=== PATIENT | male | born 1955 | race Caucasian/White ===

== ENCOUNTER 2018-06-12 08:20 | Outpatient (CLI) | payer OTHER ==
[2018-06-12 14:26] LABS: BASOPHILS % (AUTO) 0.3 %; EOSINOPHILS # (AUTO) 0.1 10^3/uL (0.0-0.7); EOSINOPHILS % (AUTO) 1.2 %; LYMPHOCYTES # (AUTO) 1.3 10^3/uL (1.5-3.5); LYMPHOCYTES % (AUTO) 19.3 %; MEAN CORPUSCULAR HEMOGLOBIN 31.2 pg (27.0-31.0); MEAN CORPUSCULAR HGB CONC 34.6 g/dL (32.0-36.0); MEAN CORPUSCULAR VOLUME 90.4 fL (80.0-94.0); MEAN PLATELET VOLUME 7.8 fL (7.4-11.4); MONOCYTES # (AUTO) 0.6 10^3/uL (0.0-1.0); MONOCYTES % (AUTO) 9.1 %; NEUTROPHILS # (AUTO) 4.9 10^3/uL (1.5-6.6); NEUTROPHILS % (AUTO) 70.1 %; PLT - PLATELET COUNT 233 10^3/uL (130-450); RED BLOOD COUNT 5.11 10^6/uL (4.70-6.10); RED CELL DISTRIBUTION WIDTH 13.1 % (12.0-15.0); WHITE BLOOD COUNT 6.9 x10^3/uL (4.8-10.8)
[2018-06-12 15:02] LABS: ALBUMIN 4.2 g/dL (3.2-5.5); ALBUMIN/GLOBULIN RATIO 1.2 (1.0-2.2); ALKALINE PHOSPHATASE 75 IU/L (42-121); ALT ALANINE AMINOTRANSFERASE 24 IU/L (10-60); AST ASPARTATE AMINOTRANSFERASE 26 IU/L (10-42); BUN - BLOOD UREA NITROGEN 16 mg/dL (6-20); CALCIUM 9.4 mg/dL (8.5-10.3); CARBON DIOXIDE - CO2 27 mmol/L (21-32); CHLORIDE 101 mmol/L (101-111); CHOL/HDL RATIO 3.6 (<5.0); CHOLESTEROL 204 mg/dL; CREATININE 0.9 mg/dL (0.6-1.2); GFR - MDRD 86 (>89); GLUCOSE 121 mg/dL (70-100); HDL CHOLESTEROL 57 mg/dL; LDL CHOLESTEROL,CALCULATED 119 mg/dL; LDL/HDL RATIO 2.1 (<3.6); SODIUM 139 mmol/L (135-145); TOTAL PROTEIN 7.6 g/dL (6.7-8.2); VLDL CHOLESTEROL 28 mg/dL
== END 2018-06-12 08:21 | disposition home or self-care (01) ==
LOC: LAB.N 08:20
PROVIDERS: ATTEND Physician Assistant Medical
DX: Z00.00 Encounter for general adult medical examination without abnormal findings (principal); F41.1 Generalized anxiety disorder; E78.00 Pure hypercholesterolemia, unspecified
CPT/HCPCS: 36415; 80053; 80061; 83721; 84443; 85025

== ENCOUNTER 2021-05-04 16:10 | Outpatient (CLI) | payer OTHER ==
--- NOTE | 2021-05-05 08:51 | XRAY Report ---
PROCEDURE: Shoulder 3 View LT INDICATIONS: OSTEOARTHRITIS OF L SHOULDER TECHNIQUE: Views of the shoulder were acquired. COMPARISON: None. FINDINGS: Bones: No fractures or dislocations. No suspicious bony lesions. Visualized ribs appear intact. T here are degenerative changes of the glenohumeral joint and acromioclavicular joint which are mild. Soft tissues: No suspicious soft tissue calcifications. IMPRESSION: Mild degenerative changes of the glenohumeral joint and acromioclavicular joint. No acut e abnormality. Reviewed by: Tyson Herman on 05/05/2021 8:49 AM PDT Approved by: Tyson Herman on 05/05/2021 8:49 AM PDT Station ID: [id number]
== END 2021-05-04 23:59 | disposition home or self-care (01) ==
LOC: DI.N 16:10
PROVIDERS: ATTEND Physician Assistant Medical
DX: M19.012 Primary osteoarthritis, left shoulder (principal)

== ENCOUNTER 2021-07-14 08:00 | Outpatient (CLI) | payer OTHER ==
--- NOTE | 2021-07-14 17:48 | XRAY Report ---
PROCEDURE: Shoulder 1 View LT INDICATIONS: OSTEOARTHRITIS OF L SHOULDER TECHNIQUE: 1 views of the shoulder were acquired. COMPARISON: 3 views of the left shoulder dated 05/04/2021 FINDINGS: Bones: A single view of the shoulder demonstrates no obvious fractures or dislocations. Degenerative changes, as noted before. No suspicious bony lesions. Visualized ribs appear intact. Soft tissues: No suspicious soft tissue calcifications. IMPRESSION: Degenerative change. No evidence acute bony abnormality of the left shoulder. If clinical suspicion and/or symptoms persist, further assessment with repeat plain films or advanced imaging (e.g., CT, MRI, or bone scan) may be helpful for further assessment. Reviewed by: Gerald Méndez MD on 07/14/2021 5:46 PM PST Approved by: Gerald Méndez MD on 07/14/2021 5:46 PM PST Station ID: [id number]
== END 2021-07-14 23:59 | disposition home or self-care (01) ==
LOC: DI.N 08:00
PROVIDERS: ATTEND Physician Assistant
DX: M19.012 Primary osteoarthritis, left shoulder (principal)

== ENCOUNTER 2022-10-15 08:02 | Outpatient (CLI) | payer MEDICARE, MEDICAID ==
[2022-10-15 11:59] LABS: BASOPHILS % (AUTO) 0.5 %; EOSINOPHILS # (AUTO) 0.1 10^3/uL (0.0-0.7); EOSINOPHILS % (AUTO) 1.8 %; HCT - HEMATOCRIT 46.3 % (42.0-52.0); HGB - HEMOGLOBIN 15.3 g/dL (14.0-18.0); LYMPHOCYTES # (AUTO) 1.3 10^3/uL (1.5-3.5); LYMPHOCYTES % (AUTO) 21.7 %; MEAN CORPUSCULAR HEMOGLOBIN 30.2 pg (27.0-31.0); MEAN CORPUSCULAR VOLUME 91.5 fL (80.0-94.0); MEAN PLATELET VOLUME 9.7 fL (7.4-11.4); MONOCYTES # (AUTO) 0.5 10^3/uL (0.0-1.0); NEUTROPHILS % (AUTO) 66.7 %; PLT - PLATELET COUNT 209 10^3/uL (130-450); RED BLOOD COUNT 5.06 10^6/uL (4.70-6.10); RED CELL DISTRIBUTION WIDTH 13.2 % (12.0-15.0)
[2022-10-15 12:18] LABS: ALBUMIN 4.1 g/dL (3.2-5.5); ALBUMIN/GLOBULIN RATIO 1.3 (1.0-2.2); ALKALINE PHOSPHATASE 68 IU/L (42-121); ALT ALANINE AMINOTRANSFERASE 26 IU/L (10-60); AST ASPARTATE AMINOTRANSFERASE 21 IU/L (10-42); BUN - BLOOD UREA NITROGEN 28 mg/dL (6-20); CALCIUM 9.4 mg/dL (8.5-10.3); CARBON DIOXIDE - CO2 29 mmol/L (21-32); CHLORIDE 104 mmol/L (101-111); CHOL/HDL RATIO 3.6 (<5.0); CHOLESTEROL 172 mg/dL; CREATININE 1.1 mg/dL (0.6-1.2); GFR - MDRD 67 (>89); GLUCOSE 125 mg/dL (70-100); HDL CHOLESTEROL 48 mg/dL; LDL CHOLESTEROL,CALCULATED 104 mg/dL; LDL/HDL RATIO 2.2 (<3.6); SODIUM 137 mmol/L (135-145); TOTAL PROTEIN 7.3 g/dL (6.7-8.2); TRIGLYCERIDES 99 mg/dL; VLDL CHOLESTEROL 20 mg/dL
[2022-10-15 12:26] LABS: THYROID STIMULATING HORMONE 2.15 uIU/mL (0.34-5.60)
== END 2022-10-15 08:03 | disposition home or self-care (01) ==
LOC: LAB.N 08:02
PROVIDERS: ATTEND Family Medicine
DX: Z00.00 Encounter for general adult medical examination without abnormal findings (principal); E78.00 Pure hypercholesterolemia, unspecified; F41.1 Generalized anxiety disorder; Z12.5 Encounter for screening for malignant neoplasm of prostate
CPT/HCPCS: 36415; 80053; 80061; 84443; 85025; G0103; 83721; 84153

== ENCOUNTER 2023-02-03 09:15 | Outpatient (CLI) | payer MEDICARE, MEDICAID ==
[2023-02-03 12:13] LABS: PSA TOTAL 5.109 ng/mL (0.000-2.000)
[2023-02-03 12:41] LABS: PSA FREE 0.54 ng/mL (0.16-2.81)
== END 2023-02-03 09:16 | disposition home or self-care (01) ==
LOC: LAB.N 09:15
PROVIDERS: ATTEND Family Medicine
DX: R97.20 Elevated prostate specific antigen [PSA] (principal); Z12.5 Encounter for screening for malignant neoplasm of prostate
CPT/HCPCS: 36415; 84153; 84154

== ENCOUNTER 2023-04-08 08:20 | Outpatient (CLI) | payer MEDICARE, MEDICAID ==
[2023-04-08 12:35] LABS: PSA TOTAL 5.219 ng/mL (0.000-2.000)
== END 2023-04-08 08:21 | disposition home or self-care (01) ==
LOC: LAB.N 08:20
PROVIDERS: ATTEND Family Medicine
DX: R97.20 Elevated prostate specific antigen [PSA] (principal); Z12.5 Encounter for screening for malignant neoplasm of prostate
CPT/HCPCS: 36415; 84153; 84154

== ENCOUNTER 2023-04-14 07:04 | Outpatient (CLI) | payer MEDICARE, OTHER ==
[2023-04-14 07:42] LABS: CREATININE 1.1 mg/dL (0.6-1.3)
--- NOTE | 2023-04-14 14:00 | MRI Report ---
PROCEDURE: PELVIS W/WO INDICATIONS: ELEVATED PSA CONTRAST: GADAVIST 7.3 ML TECHNIQUE: Coronal ultra fast SE, axial T1 FSE with fat saturation, 3-plane nonbreath-hold T2 FSE. After the ad ministration of contrast, dynamic axial, delayed axial and coronal ultra fast GE or 2-D spoiled GE wi th fat saturation through the pelvis. Optional diffusion weighted imaging and ADC may be performed. COMPARISON: None. FINDINGS: Image quality: Diffusion weighted and dynamic contrast enhanced images are diagnostic. Prostate: Gland size is 5.0 x 3.2 x 3.6 cm; ellipsoid gland volume is 30 mL. Prostate lesions: Lesion 1: Location: Left, mid gland, medial peripheral zone. This is best seen on axial series 5, image 10 and coronal series 6, image 16. Size: 1.2 x 0.6 cm. T2W signal: Circumscribed, homogenous moderate hypointense focus (PI-RADS 4 or 5). DWI signal: Markedly hyperintense signal (PI-RADS 4-5). ADC signal: Markedly hypointense signal (PI-RADS 4-5). Enhancement: Yes Extracapsular extension: No. No neurovascular involvement. No seminal vesicle involvement. PI-RADS score: 4 Genitourinary system: Trabecular bladder wall. Mild distention of the left distal ureter, without ob structing mass seen. Bowel and peritoneum: No pathologic free pelvic fluid. Inferior colon and small bowel loops are nor mal in caliber. Nodes and vessels: No pelvic or inguinal adenopathy by size criteria. Iliac vessels are normal in c aliber. Soft tissues: Small, fat-containing inguinal hernias. Bones: Bone marrow demonstrates normal overall signal. No suspicious bony lesions. IMPRESSION: PI-RADS 4 lesion in the peripheral mid mid gland on the left. No aggressive osseous abnormality. No s uspicious pelvic nodes. Small, fat-containing inguinal hernias. Reviewed by: Kurt Bazan on 04/14/2023 1:59 PM PDT Approved by: Kurt Bazan on 04/14/2023 1:59 PM PDT Station ID: [id number]
== END 2023-04-14 07:05 | disposition home or self-care (01) ==
LOC: LAB 07:04
PROVIDERS: ATTEND Urology
DX: R97.20 Elevated prostate specific antigen [PSA] (principal); K40.20 Bilateral inguinal hernia, without obstruction or gangrene, not specified as recurrent; N42.89 Other specified disorders of prostate
CPT/HCPCS: 36415; 72197; 82565; 84520; A9585

== ENCOUNTER 2023-10-07 07:33 | Day surgery (SDC) | payer MEDICARE, OTHER ==
--- NOTE | 2023-10-07 07:48 | ANESTHESIA ---
Pre-Anesthesia VS, & Labs - Diagnosis screening colonoscopy - Procedure colonoscopy - NPO Other (prep as directed) Home Medications and Allergies Home Medications: Ambulatory Orders Atorvastatin Calcium 40 mg PO HS 10/06/23 Multivit with Iron,Minerals [Multivitamins with Iron] 1 tab PO DAILY 10/06/23 Sertraline HCl 100 mg PO HS 10/06/23 Sildenafil Citrate [Viagra] 25 mg PO PRN PRN MDD 50 10/06/23 Tamsulosin [Flomax] 0.4 mg PO DAILY 10/06/23 buPROPion [Wellbutrin Sr] 150 mg PO DAILY 10/06/23 glucosamine HCL [Glucosamine HCl] 1,500 mg PO DAILY 10/06/23 Atorvastatin Calcium 40 mg PO HS 10/06/23 Multivit with Iron,Minerals [Multivitamins with Iron] 1 tab PO DAILY 10/06/23 Sertraline HCl 100 mg PO HS 10/06/23 Sildenafil Citrate [Viagra] 25 mg PO PRN PRN MDD 50 10/06/23 Tamsulosin [Flomax] 0.4 mg PO DAILY 10/06/23 buPROPion [Wellbutrin Sr] 150 mg PO DAILY 10/06/23 glucosamine HCL [Glucosamine HCl] 1,500 mg PO DAILY 10/06/23 Allergies/Adverse Reactions: Allergies Allergy/AdvReac Type Severity Reaction Status Date / Time Unable to Assess Allergy Verified 10/06/23 14:09 Anes History & Medical History - Anesthetic History Anesthesia Complications: reports: No previous complications - Medical History Smoking Status: Never smoker Psychosocial: reports: Alcohol (rare beer) History of Cancer?: No Exam General: Alert, Oriented x3 Dental: WNL Mouth Opening: Greater than 4 Fingerbreadths Neck Mobility: Normal Mallampati classification: II Thyromental Distance: greater than 6 cm Respiratory: Lungs clear Cardiovascular: Regular rate Plan Anesthesia Type: Total IV Consent for Procedure(s) Verified and Reviewed: Yes Code Status: Attempt Resuscitation ASA classification: 2-Mild systemic disease Is this case an emergency?: No
[2023-10-07] MEDS: LACTATED RINGERS 1,000 ML IV ONE ×2 (07:51→09:10)
--- NOTE | 2023-10-07 08:31 | HISTORY & PHYSICAL EXAMINATION ---
Chief Complaint - Chief Complaint Chief Complaint: here for colonoscopy History of Present Illness - History Obtained From Records Reviewed: yes History obtained from: pt Exam Limitations: none - History of Present Illness HPI Comment/Other: here for colon cancer screening. no gi problems. last colonoscopy 2017 normal. had colon polyps age 51. recent labs normal History - Past Medical History Cardiovascular: reports: High cholesterol Respiratory: reports: None Endocrine/Autoimmune: reports: None GI: reports: None : reports: Other HEENT: reports: None Psych: reports: ADD/ADHD Musculoskeletal: reports: Other Derm: reports: None MRSA Hx?: No - Past Surgical History Ortho: reports: Carpal Tunnel surgery, Other Meds/Allgy - Home Medications Home Medications: Ambulatory Orders Medication Instructions Recorded Confirmed Atorvastatin Calcium 40 mg PO HS 10/06/23 10/06/23 Multivit with Iron,Minerals 1 tab PO DAILY 10/06/23 10/06/23 [Multivitamins with Iron] Sertraline HCl 100 mg PO HS 10/06/23 10/06/23 Sildenafil Citrate [Viagra] 25 mg PO PRN PRN MDD 50 10/06/23 10/06/23 Tamsulosin [Flomax] 0.4 mg PO DAILY 10/06/23 10/06/23 buPROPion [Wellbutrin Sr] 150 mg PO DAILY 10/06/23 10/06/23 glucosamine HCL [Glucosamine HCl] 1,500 mg PO DAILY 10/06/23 10/06/23 - Allergies Allergies/Adverse Reactions: Allergies Allergy/AdvReac Type Severity Reaction Status Date / Time Unable to Assess Allergy Verified 10/06/23 14:09 Review of Systems - Other Findings Other Findings: 10 pt ros as above otherwise unremarkable Exam - Vital Signs Vital Signs: Vital Signs x48h Temp Pulse Resp BP Pulse Ox 10/07/23 07:47 36.2 C L 68 16 125/83 H 97 - Physical Exam General Appearance: positive: No acute distress, Alert Eyes Bilateral: positive: PERRL, EOMI ENT: positive: No signs of dehydration Neck: positive: No JVD, Trachea midline Respiratory: positive: No respiratory distress Cardiovascular: positive: Regular rate & rhythm Abdomen: positive: No distention Neurologic/Psychiatric: positive: Oriented x3 Conclusion/Plan - Problem List (1) Colon cancer screening Conclusion/Plan: plan colonoscopy. parq held and consent obtained
[2023-10-07] MEDS ORDERED: PROPOFOL 500 MG/50 ML 500 MG/50 ML VIAL ONE (08:48)
--- NOTE | 2023-10-07 09:18 | ANESTHESIA POST OP EVALUATION ---
<Анна Darden - Last Filed: 10/07/23 09:17> Anesthesia Post Eval - Post Anesthesia Eval CV Function Including HR & BP: Stable Pain Control: Satisfactory Nausea & Vomiting: Negative Mental Status: Baseline Respiratory Status: Airway Patent Hydration Status: Satisfactory Anesthesia Complications: None <Maura Weiss - Last Filed: 10/07/23 09:25> Anesthesia Post Eval - Post Anesthesia Eval Vitals: Last Vital Signs Temp 36.2 C L 10/07/23 09:20 Pulse 62 10/07/23 09:20 Resp 14 10/07/23 09:20 BP 85/53 L 10/07/23 09:20 Pulse Ox 98 10/07/23 09:20 O2 Flow Rate
[2023-10-07 09:41] VITALS: BP 105/68; O2SAT 100
== END 2023-10-07 07:34 | disposition home or self-care (01) ==
LOC: SDS 07:33
PROVIDERS: ATTEND Surgery
PROC: 0DBM8ZZ Excision of Descending Colon, Via Natural or Artificial Opening Endoscopic (ICD-10-PCS; 2023-10-07)
PROC: 0DBK8ZZ Excision of Ascending Colon, Via Natural or Artificial Opening Endoscopic (ICD-10-PCS; principal; 2023-10-07 08:30)
DX: Z12.11 Encounter for screening for malignant neoplasm of colon (principal); D12.2 Benign neoplasm of ascending colon; K63.5 Polyp of colon
CPT/HCPCS: 45380; J7120

== ENCOUNTER 2024-03-30 08:04 | Outpatient (CLI) | payer MEDICARE, OTHER ==
[2024-03-30 12:05] LABS: BASOPHILS % (AUTO) 0.4 %; EOSINOPHILS # (AUTO) 0.1 10^3/uL (0.0-0.7); EOSINOPHILS % (AUTO) 1.2 %; HCT - HEMATOCRIT 45.2 % (42.0-52.0); LYMPHOCYTES # (AUTO) 1.4 10^3/uL (1.5-3.5); LYMPHOCYTES % (AUTO) 16.4 %; MEAN CORPUSCULAR HEMOGLOBIN 30.6 pg (27.0-31.0); MEAN CORPUSCULAR HGB CONC 33.2 g/dL (32.0-36.0); MEAN CORPUSCULAR VOLUME 92.2 fL (80.0-94.0); MEAN PLATELET VOLUME 9.9 fL (7.4-11.4); MONOCYTES # (AUTO) 0.6 10^3/uL (0.0-1.0); MONOCYTES % (AUTO) 7.6 %; NEUTROPHILS # (AUTO) 6.3 10^3/uL (1.5-6.6); NEUTROPHILS % (AUTO) 74.2 %; PLT - PLATELET COUNT 222 10^3/uL (130-450); WHITE BLOOD COUNT 8.4 x10^3/uL (4.8-10.8)
[2024-03-30 12:34] LABS: ALBUMIN 4.2 g/dL (3.2-5.5); ALBUMIN/GLOBULIN RATIO 1.6 (1.0-2.2); ALKALINE PHOSPHATASE 82 IU/L (42-121); ALT ALANINE AMINOTRANSFERASE 21 IU/L (10-60); AST ASPARTATE AMINOTRANSFERASE 21 IU/L (10-42); BILIRUBIN,TOTAL 0.3 mg/dL (0.2-1.0); BUN - BLOOD UREA NITROGEN 30 mg/dL (6-20); CALCIUM 9.4 mg/dL (8.5-10.3); CARBON DIOXIDE - CO2 27 mmol/L (21-32); CHLORIDE 107 mmol/L (101-111); CHOL/HDL RATIO 2.8 (<5.0); CHOLESTEROL 174 mg/dL; GFR - MDRD 75 (>89); GLUCOSE 127 mg/dL (74-104); HDL CHOLESTEROL 63 mg/dL; LDL CHOLESTEROL,CALCULATED 97 mg/dL; LDL/HDL RATIO 1.5 (<3.6); POTASSIUM 4.5 mmol/L (3.5-4.5); SODIUM 139 mmol/L (135-145); TOTAL PROTEIN 6.8 g/dL (6.4-8.9); TRIGLYCERIDES 70 mg/dL; VLDL CHOLESTEROL 14 mg/dL
[2024-03-30 12:35] LABS: THYROID STIMULATING HORMONE 2.11 uIU/mL (0.34-5.60)
== END 2024-03-30 08:05 | disposition home or self-care (01) ==
LOC: LAB.N 08:04
PROVIDERS: ATTEND Family Medicine
DX: C61 Malignant neoplasm of prostate (principal); F60.5 Obsessive-compulsive personality disorder; M19.012 Primary osteoarthritis, left shoulder; E78.00 Pure hypercholesterolemia, unspecified
CPT/HCPCS: 36415; 80053; 80061; 83721; 84153; 84443; 85025